=== PATIENT | female | born 1945 | race Caucasian/White ===

== ENCOUNTER 2022-01-19 10:33 | Emergency (ER) | payer MEDICARE, OTHER, SELFPAY ==
[2022-01-19 10:56] VITALS: BP 141/79; PULSE 86; RESP 17; TEMP 36.6; O2SAT 97; BMI 36.6
--- NOTE | 2022-01-19 11:10 | HMH.EDUTC ---
[facility] [place]ression: Rash Disposition: Home, Self-Care Condition on Discharge: Good Instructions: DI for Rash, Cephalexin Additional Instructions: Take medication as prescribed Over the counter Vasoline or Aquaphor around the lips and on the lips Return if needed Follow up with your Family Doctor if no improvement or immediately if any worsening of symptoms Over the counter Benadryl may help with itching Prescriptions: cephALEXin [cephALEXin 500mg capsule*] 500 mg PO Q8H 7 Days #21 cap Transmission Status: Pending to [id number] Referrals: Provider,Referral, [Primary Care Provider] - As needed Time of Disposition: 11:39 Medical Decision Making - T[place] Inquiry Pt receiving controlled substance: No [place] was queried for this patient: No Vital Signs: 01/19/22 10:56 Temperature 97.8 F Temperature Source Temporal Artery Scan Pulse Rate [Right Brachial] 86 Respiratory Rate 17 Blood Pressure [Right Arm] 141/79 H Blood Pressure Mean [Right Arm] 99 Blood Pressure Source [Right Arm] Automatic Cuff Blood Pressure Position [Right Arm] Sitting 02 Sat by Pulse Oximetry 97 Oxygen Delivery Method Room Air [facility] [place] - General Stated complaint: rash on lip Time Seen by Provider: 01/19/22 11:10 Mode of Arrival: Ambulatory Source of Information: Patient Limitations: No Limitations Description of Symptoms (Recalled from Triage Doc. by RN): mouth and nose rash HEENT Symptoms (Recalled from RN notes): No Resp Symptoms (Recalled from RN notes): No Skin Symptoms (Recalled from RN notes): Yes MS Symptoms (Recalled from RN notes): No Functional Status (Recalled from RN notes): WNL - History of Present Illness Provider Complaint: Patient states that she had a fever blister about 2 weeks ago State that she had been using some abrevea States that since then she has continued to have worsening of rash around mouth with redness and dry feeling and pain/sores in the edge of her nose States htat today it was still hurting so she came in to get it checked out - Related Data Previous Rx's Medication Instructions Recorded cephALEXin [cephALEXin 500mg 500 mg PO Q8H 7 Days #21 cap 01/19/22 capsule*] Allergies Allergy/AdvReac Type Severity Reaction Status Date / Time No Known Allergies Allergy Verified 01/19/22 10:55 - Worker's Comp Is this a Worker's Comp case?: No [facility] History - Hepatitis A Screen Drug use history?: No High risk sexual behaviors?: No History of sexually transmitted infection?: No Currently employed?: No Childcare worker?: No Do you have indoor plumbing?: Yes Do you have electricity?: Yes Attestation statement:: This patient has been screened for Hepatitis A risk factors. I have reviewed the patient's past medical history: Yes Medical History: Denies:: Diabetes Mellitus Type 1, Diabetes Mellitus Type 2 - Social History Alcohol Intake: never Occupational Status: retired ROS Obtained: Yes All systems reviewed & no additional complaints, Yes Systems reviewed as appropriate & no additional complaints - Constitutional Constitutional: Reports system reviewed and no additional complaints, except as docu, Denies body ache, Denies chills, Reports fever(s) (feels like she has had a low grade 2 wks ago) - ENT Ears, Nose, Mouth, and Throat: Reports system reviewed and no additional complaints, except as docu Comments: red dry area around mouth and on lips with small sore like lesions noted on opening of nares Physical Exam - General General appearance: alert, in no apparent distress - Expanded ENT Exam Mouth exam: Present: other (red dry irritated skin noted around upper and lower lips and small sore like lesions noted on opening of nares) - Respiratory Respiratory exam: Present: normal lung sounds bilaterally. Absent: respiratory distress - Cardiovascular Cardiovascular exam: Present: regular rate, normal rhythm. Absent: JVD - Abdominal Ex
[2022-01-19 11:40] VITALS: BP 141/79; PULSE 86; RESP 17; TEMP 36.6; O2SAT 97
== END 2022-01-19 11:40 | disposition home or self-care (01) ==
PROVIDERS: Emergency Provider Nurse Practitioner
DX: B00.1 Herpesviral vesicular dermatitis (principal)
CPT/HCPCS: G0463; 99202